=== PATIENT | female | born 1985 | race American Indian/Alaskan Native ===

== ENCOUNTER 2022-03-13 17:40 | Emergency (ER) | payer OTHER, BC ==
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
[2022-03-13 21:46] VITALS: BP 134/79
== END 2022-03-13 22:11 | disposition home or self-care (01) ==
LOC: ED 17:40
DX: S16.1XXA Strain of muscle, fascia and tendon at neck level, initial encounter (principal); V89.2XXA Person injured in unspecified motor-vehicle accident, traffic, initial encounter; Y93.89 Activity, other specified; Y92.89 Other specified places as the place of occurrence of the external cause; Y99.8 Other external cause status
CPT/HCPCS: 72040; 99283